=== PATIENT | female | born 1935 | race Caucasian/White ===

== ENCOUNTER 2017-01-26 20:26 | Emergency (ER) | payer OTHER ==
--- NOTE | ~2017-01-26 | EKG ---
PATIENT: BRANDON LALA UNIT #: [id number] Ventricular Rate: 58 BPM Atrial Rate: 58 BPM P-R Interval: 198 ms QRS Duration: 78 ms Q-T Interval: 422 ms QTC Calculation(Bezet): 414 ms P [place]: 36 degrees Calculated R [place]: -24 degrees Calculated T [place]: 1 degrees Diagnosis Line: Sinus bradycardia Diagnosis Line: Low voltage QRS Diagnosis Line: Septal infarct , age undetermined Diagnosis Line: Abnormal ECG Diagnosis Line: No previous ECGs available Diagnosis Line: Confirmed by INGRIS HUSSEIN MD ([id number]) on Diagnosis Line: 01/27/2017 8:03:04 AM INTERPRETING MD: JOVITA FORD
--- NOTE | ~2017-01-26 | CR72 ---
[facility] A Service of [facility] & [facility] RADIOLOGY TEXT RESULTS PATIENT: BRANDON LALA LOCATION: [facility] : 39 UNIT #: [id number] AGE: [address]: Christopher Pearce MD SEX: F ORDER DR: [id number] [facility] [address] [place], [place] [address] [id number] E MR#: [id number] Acc #: [id number] NAME: BRANDON LALA. : 1935 SEX: F STUDY DATE/TIME: 01/26/2017 20:41 UNIT: [facility] ROOM: STUDY DESCRIPTION: CR Chest Single View Portable Attending Physician: Christopher Pearce M.D. Ordering Physician: Christopher Pearce M.D. Primary Care Physician: Guera Posey M.D. MEDICAL IMAGING REPORT This report is preliminary unless electronic signature is present EXAM Portable chest HISTORY Shortness of air today. FINDINGS The cardiac size and pulmonary vascularity are within normal limits. Mild left thoracic curve. Extensive tiny calcified granulomas bilaterally. Small calcified mediastinal and right hilar nodes. IMPRESSION No acute findings and no active disease. Dictated by... Nhan Kay M.D. THIS IS AN ELECTRONICALLY VERIFIED REPORT Nhan Kay M.D. at 01/27/2017 12:38 PM NANCY/will TD: 01/27/2017 11:33 JOB #: [id number] MEDICAL IMAGING REPORT COPY
--- NOTE | ~2017-01-26 | CT71 ---
[facility] A Service of [facility] RADIOLOGY TEXT RESULTS PATIENT: BRANDON LALA LOCATION: [facility] : 39 UNIT #: [id number] AGE: [address]: Christopher Pearce MD SEX: F ORDER DR: [id number] [facility] [address] [place], [place] [address] [id number] E MR#: [id number] Acc #: [id number] NAME: BRANDON LALA. : 1935 SEX: F STUDY DATE/TIME: 01/26/2017 21:16 UNIT: [facility] ROOM: STUDY DESCRIPTION: CT Head Wo Contrast Attending Physician: Christopher Pearce M.D. Ordering Physician: Christopher Pearce M.D. Primary Care Physician: Geura Posey M.D. MEDICAL IMAGING REPORT This report is preliminary unless electronic signature is present EXAM Head CT without contrast HISTORY Lethargy and headache starting today. TECHNIQUE Axial images were obtained without contrast FINDINGS Generalized atrophy is seen. There are moderate chronic ischemic changes around ventricles. There is no evidence of mass, hemorrhage or edema. No midline shift is seen. Extraaxial structures are unremarkable. IMPRESSION Atrophy with chronic ischemic changes around the ventricles. No acute findings. Dictated by... Roni Carbajal M.D. THIS IS AN ELECTRONICALLY VERIFIED REPORT Roni Carbajal M.D. at 01/28/2017 11:02 AM HOMERO/jarrod TD: 01/27/2017 11:37 JOB #: [id number] MEDICAL IMAGING REPORT Page 1 of 1 COPY
[2017-01-26] MEDS ORDERED: ZESTRIL10 M1 PO (20:51)
[2017-01-26 20:52] LABS: POC - CKMB <1.0 ng/mL (0.0-7.9); POC - TROPONIN <0.05 ng/mL (<=0.05)
[2017-01-26] MEDS ORDERED: GLUCOTROL PO (20:52)
[2017-01-26] MEDS ORDERED: LEXAPRO PO (20:52)
[2017-01-26] MEDS ORDERED: NORCO 7.5-3251 EACH PO (20:52)
[2017-01-26] MEDS ORDERED: LIPITOR40 MG PO (20:52)
[2017-01-26] MEDS ORDERED: LIDEX 0.05% CR15 GM EXT (20:53)
[2017-01-26 20:58] LABS: BASOPHIL% 0.5 % (0-2.5); DIFF IND NO; EOSINOPHIL% 0.5 % (0.0-7.0); HEMATOCRIT 33.3 % (35.0-45.0); HEMOGLOBIN 10.9 gm/dL (12.0-16.0); LYMPHOCYTE# 0.7 X10e3 (1.0-3.5); LYMPHOCYTE% 18.8 % (17.0-45.0); MEAN CELL VOLUME 91.1 FL (83-96); MEAN CORPUSCULAR HEMOGLOBIN 29.9 PG (28-34); MEAN CORPUSCULAR HGB CONC 32.8 g/dL (30-36); MEAN PLATELET VOLUME 8.2 FL (6.5-11.5); MONOCYTE# 0.8 X10e3 (0-1.0); MONOCYTE% 19.6 % (3.0-12.0); NEUTROPHIL# 2.4 X10e3 (1.5-7.1); NEUTROPHIL% 60.6 % (40-75); PLATELET COUNT 211 X10e3 (140-420); RED BLOOD COUNT 3.65 X10e (3.90-5.30); RED CELL DISTRIBUTION WIDTH 12.6 % (11.0-15.5)
[2017-01-26 21:08] LABS: URINE SOURCE CLEAN CATCH
[2017-01-26 21:15] LABS: URINE APPEARANCE CLEAR; URINE BILIRUBIN NEG (NEG); URINE BLOOD TRACE (NEG); URINE COLOR YELLOW; URINE GLUCOSE NEG (NEG); URINE KETONE NEG (NEG); URINE LEUKOCYTE ESTERASE NEG (NEG); URINE NITRATE NEG (NEG); URINE PROTEIN NEG (NEG); URINE SPECIFIC GRAVITY 1.016 (1.003-1.035); URINE UROBILINOGEN 0.2 MG/DL (NEG)
[2017-01-26 21:17] LABS: URINE BACTERIA AUWI NEG (NEGATIVE); URINE SQUAMOUS EPITHELIAL CELL NONE SEEN /[HPF]; UWBCS1 AUWI 0-2 (0-5)
[2017-01-26 21:25] LABS: ALBUMIN SERUM 3.9 g/dL (3.5-5.0); BILIRUBIN, DIRECT 0.1 mg/dL (0.0-0.2); BILIRUBIN,INDIRECT 0.3 mg/dL (0.0-0.9); BILIRUBIN,TOTAL 0.4 mg/dL (0.2-2.0); BUN/CREATININE RATIO 12.3; CALCIUM SERUM 9.1 mg/dL (8.4-10.2); CREATININE SERUM 1.3 mg/dL (0.6-1.4); POTASSIUM 3.8 mmol/L (3.5-5.1); PROTEIN TOTAL SERUM 7.1 g/dL (6.0-8.3)
[2017-01-26 21:28] LABS: CULTURE INDICATED? NO
== END 2017-01-26 23:07 | disposition home or self-care (01) ==
LOC: CED 20:26
PROVIDERS: Emergency Medicine
DX: R55 Syncope and collapse (principal); R11.10 Vomiting, unspecified; R40.1 Stupor; I10 Essential (primary) hypertension; E11.9 Type 2 diabetes mellitus without complications
CPT/HCPCS: 36415; 70450; 71010; 80048; 80076; 81003; 82140; 82553; 82947; 83605; 84484; 85025; 87040; 93005; 96374; 99285; J2405